=== PATIENT | male | born 1970 | race Caucasian/White ===

== ENCOUNTER → 2018-08-10 | Outpatient (CLI) | payer BC ==
--- NOTE | 2018-08-10 14:56 | RADIOLOGY REPORT (SQ) ---
EXAM DESCRIPTION: MRI ABDOMEN COMBO COMPLETED DATE/TIME: 08/10/2018 9:55 am REASON FOR STUDY: LIVER DISEASE K76.9 LIVER DISEASE, UNSPECIFIED COMPARISON: CT abdomen pelvis 06/08/2016 Unable to access imaging 01/09/2017 for comparison from [facility] diagnostic imaging TECHNIQUE: Multiplanar multisequence imaging performed without and with contrast including sagittal, axial and coronal T2, axial T1, axial gradient fat sat T1, axial, sagittal and coronal fat sat T1 po st contrast. CONTRAST TYPE AND DOSE: 20 mL Dotarem. RENAL FUNCTION: GFR > 60. LIMITATIONS: None. FINDINGS: LIVER: Normal size. No dilated ducts. CBD normal. There are subcentimeter hemangiomas pr esent in the right and left lobe liver, with increased T2 weighted signal, isointense/hypointense T1 weighted precontrast and signal, with signal dropout on out of phase images. Characteristic benign p eripheral nodular rim enhancement of these hemangiomas on the post contrasted images. These are unch anged from CT exam 06/08/2016, and are identified in the posterior right lobe liver segment 7, left l obe liver segment 3, and left lobe liver segment 4. SPLEEN: Normal size. No focal lesions. PANCREAS: No masses. No adjacent inflammation or peripancreatic fluid collections. Pancreatic duct no t dilated. GALLBLADDER: No masses. No stones. No gallbladder wall thickening or pericholecystic fluid. ADRENAL GLANDS: No significant masses or asymmetry. RIGHT KIDNEY AND URETER: No masses. No hydronephrosis. LEFT KIDNEY AND URETER: No masses. No hydronephrosis. AORTA AND VESSELS: No aneurysm. No dissection. Renal arteries, SMA, celiac without stenosis. RETROPERITONEUM: No retroperitoneal adenopathy, hemorrhage or masses. BOWEL: Not well seen ABDOMINAL WALL AND PERITONEUM: No hernias. No free fluid. BONES: No acute or significant findings. OTHER: No other significant finding. IMPRESSION: Benign liver hemangiomas TECHNICAL DOCUMENTATION: JOB ID: [id number] [employer]- All Rights Reserved Reading location - IP/workstation name: [email or web address]
== END ==
LOC: RAD 08:49
PROVIDERS: ATTEND Nurse Practitioner Family
DX: K76.9 Liver disease, unspecified (principal)
CPT/HCPCS: 74183; A9576

== ENCOUNTER 2019-04-20 11:11 | Emergency (ER) | payer BC ==
--- NOTE | 2019-04-20 12:06 | ER Document Report ---
ED General - General Chief Complaint: High Blood Pressure Stated Complaint: BLOOD PRESSURE PROBLEM Primary Care Provider: GERMAN GALLEGOS FNP-C [NO LOCAL MD] - Follow up as needed TRAVEL OUTSIDE OF THE U.S. IN LAST 30 DAYS: No - HPI Notes: 48-year-old male on Eliquis for A. fib, history of heart failure, presents with headache and transient sleepiness and confusion. Patient states he woke this morning around 3 AM which is his normal time. Blood pressure was elevated 180/100. Take his medicines as usual, going to work which states he came home early as he just did not feel well, felt fatigued and tired and "slow". No lateralized findings, he developed a gradual onset bifrontal throbbing headache over the last several hours. No trauma. Moderate intensity, nonradiating. No worse with activity. No other modifying factors, no other associated symptoms, no other provocative or palliative factors. - Related Data Allergies/Adverse Reactions: No Known Allergies Allergy (Verified 04/20/19 11:58) Past Medical History - Social History Smoking Status: Unknown if Ever Smoked Family History: None, Reviewed & Not Pertinent - Past Medical History Cardiac Medical History: Reports: Hx Atrial Fibrillation, Hx Congestive Heart Failure Past Surgical History: Reports: Hx Appendectomy, Hx Bowel Surgery, Hx Tonsillectomy Review of Systems - Review of Systems Notes: Review of systems as in the history of present illness, otherwise negative x 10 systems. Physical Exam - Vital signs Vitals: Temp 98.0 F 04/20/19 11:12 - Notes Notes: General: Well developed, well nourished. HEENT: Normocephalic, atraumatic. PEERL. No conjunctival injection. Neck: Supple, no significant adenopathy. No meningismus. Chest: Clear bilaterally, good air entry. Abdomen: Soft, non-tender, nondistended. Back: Non-tender. Normal ROM Extremities: No cyanosis, clubbing or edema. Vascular: Symmetric peripheral pulses, normal capillary refill. Skin: No significant rash. No petechiae or purpura. Motor: Normal tone and power. Symmetric. Neurologic: Alert and oriented to person place and time. Cranial nerves II-12 are intact. Sensation intact and symmetric in the upper and lower extremities. No cerebellar findings including finger-nose testing. No clonus. Gait normal. Funduscopic exam shows crisp disc margins, no evidence of papilledema. Course - Re-evaluation Re-evalutation: 04/20/19 12:04 48-year-old male presents the aforementioned symptoms. Given his underlying anticoagulation combined with headache, concern over the potential for spontaneous bleed. Less likely ischemic CVA given the absence of any lateralized findings. May be related to other endocrine, metabolic or other etiology. We will proceed with CT imaging, laboratory valuation, serial exams and reassess. 04/20/19 14:06 Labs reviewed, CBC unremarkable, chemistries unremarkable. Chest x-ray CT imaging the brain shows no acute ab normality. Patient received diphenhydramine and Reglan with marked improvement in headache. Serial neurologic exam show no evolving abnormality. Patient was offered observation admission but is declined. He will be discharged home with follow-up close with his primary care doctor, return if worsening. 04/20/19 14:08 Note although patient is noted to have a history of A. fib, he is noted to be in sinus rhythm when I evaluate him. - Vital Signs Vital signs: Temp Pulse Resp BP Pulse Ox 98.0 F 19 141/86 H 99 04/20/19 11:26 04/20/19 14:00 04/20/19 12:01 04/20/19 14:00 - Laboratory Result Diagrams: 04/20/19 12:12 04/20/19 12:12 Laboratory results interpreted by me: 04/20/19 12:12 WBC 13.5 H Absolute Neuts (auto) 8.4 H Discharge - Discharge Clinical Impression: Headache Qualifiers: Headache type: other headache syndrome Qualified Code(s): G44.89 - Other headache syndrome Fatigue Qualifiers: Fatigue type: other Qualified Code(s): R53.83 - Other fatigue Condition: Stable Disposition: HOME, SELF-CARE Instructions: High Blood Pressure ([facility]), Headache ([facility]), Fatigue ([facility]) Additional Instructions: Follow-up with your primary care doctor tomorrow Referrals: GERMAN GALLEGOS FNP-C [NO LOCAL MD] - Follow up as needed
[2019-04-20 12:29] LABS: ABSOLUTE BASOPHILS # (AUTO) 0.1 10^3/uL (0.0-0.2); ABSOLUTE EOSINOPHILS # (AUTO) 0.3 10^3/uL (0.0-0.6); ABSOLUTE MONOCYTES (AUTO) 0.8 10^3/uL (0.1-1.4); ABSOLUTE NEUT (AUTO) 8.4 10^3/uL (1.7-8.2); BASOPHILS % (AUTO) 0.8 % (0-2); EOSINOPHILS % (AUTO) 2.1 % (0-6); HEMATOCRIT 44.2 % (37.9-51.0); HEMOGLOBIN 15.4 g/dL (13.5-17.0); LYMPHOCYTES % (AUTO) 29.4 % (13-45); MEAN CORPUSCULAR HEMOGLOBIN 31.2 pg (27.0-33.4); MEAN CORPUSCULAR HGB CONC 34.9 g/dL (32.0-36.0); MEAN CORPUSCULAR VOLUME 89 fl (80-97); MONOCYTES % (AUTO) 5.6 % (3-13); PLATELET COUNT 312 10^3/uL (150-450); RED BLOOD COUNT 4.94 10^6/uL (4.35-5.55); RED CELL DISTRIBUTION WIDTH 13.9 % (11.5-14.0); SEGMENTED NEUTROPHILS % (AUTO) 62.1 % (42-78); TOTAL CELLS COUNTED % (AUTO) 100 %; WHITE BLOOD COUNT 13.5 10^3/uL (4.0-10.5)
[2019-04-20] MEDS ORDERED: METOCLOPRAMIDE HCL INJ/PF 10 MG/2 ML SDV IV ONE (12:34)
[2019-04-20] MEDS ORDERED: DIPHENHYDRAMINE HCL 50 MG/ML VIAL IV ONE (12:34)
--- NOTE | 2019-04-20 12:47 | RADIOLOGY REPORT (SQ) ---
EXAM DESCRIPTION: CT HEAD WITHOUT COMPLETED DATE/TIME: 04/20/2019 12:33 pm REASON FOR STUDY: sadia DARNELL COMPARISON: CT brain 07/26/2008 TECHNIQUE: Axial images acquired through the brain without intravenous contrast. Images reviewed wi th bone, brain and subdural windows. Additional sagittal and coronal reconstructions were generated. Images stored on PACS. All CT scanners at this facility use dose modulation, iterative reconstruction, and/or weight based d osing when appropriate to reduce radiation dose to as low as reasonably achievable (ALARA). [facility]: Dose Right [facility]: CareDose [facility]: Dose Right [facility]: Teradose 4D [facility]: [employer] RADIATION DOSE: CT Rad equipment meets quality standard of care and radiation dose reduction techniq ues were employed. CTDIvol: 53.2 mGy. DLP: 1017 mGy-cm. mGy. LIMITATIONS: None. FINDINGS: VENTRICLES: Normal size and contour. CEREBRUM: No masses. No hemorrhage. No midline shift. No evidence for acute infarction. Normal gra y/white matter differentiation. No areas of low density in the white matter. CEREBELLUM: No masses. No hemorrhage. No alteration of density. No evidence for acute infarction. EXTRAAXIAL SPACES: No fluid collections. No masses. ORBITS AND GLOBE: No intra- or extraconal masses. Normal contour of globe without masses. CALVARIUM: No fracture. PARANASAL SINUSES: Mild mucous membrane thickening and fluid in the ethmoid air cells SOFT TISSUES: No mass or hematoma. OTHER: No other significant finding. IMPRESSION: No acute intracranial changes. Minimal ethmoid sinus inflammatory findings EVIDENCE OF ACUTE STROKE: NO. COMMENT: Quality ID # [id number]: Final reports with documentation of one or more dose reduction techniques (e.g., Automated exposure control, adjustment of the mA and/or kV according to patient size, use of iterative reconstruction technique) TECHNICAL DOCUMENTATION: JOB ID: [id number] [employer]- All Rights Reserved Reading location - IP/workstation name: [email or web address]
[2019-04-20 12:51] LABS: ALBUMIN 4.2 g/dL (3.5-5.0); ALKALINE PHOSPHATASE 53 U/L (38-126); ANION GAP 8 (5-19); ASPARTATE AMINO TRANSFERASE 21 U/L (17-59); BILIRUBIN,DIRECT 0.1 mg/dL (0.0-0.4); BILIRUBIN,TOTAL 0.6 mg/dL (0.2-1.3); BLOOD UREA NITROGEN 16 mg/dL (7-20); CALCIUM 9.5 mg/dL (8.4-10.2); CARBON DIOXIDE 27 mmol/L (22-30); CHLORIDE 104 mmol/L (98-107); GLUCOSE 87 mg/dL (75-110); POTASSIUM 4.1 mmol/L (3.6-5.0)
[2019-04-20 14:11] VITALS: BP 125/84
== END 2019-04-20 14:19 | disposition home or self-care (01) ==
LOC: ER 11:11
DX: G44.89 Other headache syndrome (principal); R53.83 Other fatigue; R41.0 Disorientation, unspecified; I48.91 Unspecified atrial fibrillation; Z79.02 Long term (current) use of antithrombotics/antiplatelets
CPT/HCPCS: 36415; 85025; 80053; 70450; J1200; J2765; 96374; 96375; 99284

== ENCOUNTER 2020-08-04 14:56 | Emergency (ER) | payer SELFPAY ==
[2020-08-04 15:58] VITALS: BP 151/89
--- NOTE | 2020-08-04 16:24 | ER Document Report ---
ED Medical Screen (RME) - General Chief Complaint: Blood Pressure Problem Stated Complaint: POSSIBLE HIGH BLOOD PRESSURE Time Seen by Provider: 08/04/20 16:08 TRAVEL OUTSIDE OF THE U.S. IN LAST 30 DAYS: No - HPI Notes: 08/04/20 16:20 50-year-old male with a history of atrial fibrillation, CHF hypertension presents to the emergency room today for evaluation of shortness of breath, uncontrolled hypertension with medications with readings 180/123, palpitations and patient is not on anticoagulants due to lack of insurance. Patient states he did have an atrial ablation done 2 years ago for his atrial fibrillation. He states over the last couple of weeks a "chip" in his heart keeps "going off" but he has been feeling the shortness of breath for the last 2 days that has become progressively worse. He states he has been off the Eliquis for a year or so. He does follow with Dr. Hansen, information systems architect at [facility]. Patient states he tried to get an echocardiogram of his heart due to only having EF of 50% but due to lack of insurance he is unable to get this done. Patient does take amiodarone, metoprolol, lisinopril, Lasix daily. Denies any pedal edema. Patient concerned that his CHF has become worse as well as his uncontrolled A. fib I have greeted and performed a rapid initial assessment of this patient. A comprehensive ED assessment and evaluation of the patient, analysis of test results and completion of the medical decision making process will be conducted by additional ED providers. PHYSICAL EXAMINATION: GENERAL: Well-appearing, well-nourished and in no acute distress. CV: Regularly irregular, tachycardia LUNGS: No respiratory distress The patient was evaluated during a global COVID-19 pandemic and that diagnosis was suspected/considered upon their initial presentation. Their evaluation, treatment and testing was consistent with current guidelines for patients who present with complaints or symptoms and may be related to COVID-19. - Related Data Allergies/Adverse Reactions: No Known Allergies Allergy (Verified 04/20/19 11:58) Past Medical History - Past Medical History Cardiac Medical History: Reports: Hx Atrial Fibrillation, Hx Congestive Heart Failure, Hx Hypertension Past Surgical History: Reports: Hx Appendectomy, Hx Bowel Surgery, Hx Tonsillectomy Physical Exam - Vital signs Vitals: Temp Pulse Resp BP Pulse Ox 98.1 F 126 H 20 151/89 H 97 08/04/20 15:53 08/04/20 15:53 08/04/20 15:53 08/04/20 15:53 08/04/20 15:53 Course - Vital Signs Vital signs: Temp Pulse Resp BP Pulse Ox 98.1 F 126 H 20 151/89 H 97 08/04/20 15:53 08/04/20 15:53 08/04/20 15:53 08/04/20 15:53 08/04/20 15:53
[2020-08-04 16:53] LABS: ABSOLUTE BASOPHILS # (AUTO) 0.2 10^3/uL (0.0-0.2); ABSOLUTE EOSINOPHILS # (AUTO) 0.3 10^3/uL (0.0-0.6); ABSOLUTE LYMPHOCYTES (AUTO) 2.9 10^3/uL (0.5-4.7); ABSOLUTE NEUT (AUTO) 8.6 10^3/uL (1.7-8.2); BASOPHILS % (AUTO) 1.3 % (0-2); EOSINOPHILS % (AUTO) 2.6 % (0-6); HEMATOCRIT 43.8 % (37.9-51.0); HEMOGLOBIN 15.7 g/dL (13.5-17.0); LYMPHOCYTES % (AUTO) 22.7 % (13-45); MEAN CORPUSCULAR HEMOGLOBIN 31.1 pg (27.0-33.4); MEAN CORPUSCULAR VOLUME 87 fl (80-97); MONOCYTES % (AUTO) 7.3 % (3-13); PLATELET COUNT 307 10^3/uL (150-450); RED BLOOD COUNT 5.05 10^6/uL (4.35-5.55); RED CELL DISTRIBUTION WIDTH 13.4 % (11.5-14.0); SEGMENTED NEUTROPHILS % (AUTO) 66.1 % (42-78); TOTAL CELLS COUNTED % (AUTO) 100 %; WHITE BLOOD COUNT 12.9 10^3/uL (4.0-10.5)
[2020-08-04 17:14] LABS: ALBUMIN 4.4 g/dL (3.5-5.0); ALKALINE PHOSPHATASE 59 U/L (38-126); ANION GAP 7 (5-19); ASPARTATE AMINO TRANSFERASE 21 U/L (17-59); BILIRUBIN,DIRECT 0.3 mg/dL (0.0-0.4); BILIRUBIN,TOTAL 0.6 mg/dL (0.2-1.3); BLOOD UREA NITROGEN 19 mg/dL (7-20); CARBON DIOXIDE 33 mmol/L (22-30); CHLORIDE 101 mmol/L (98-107); GLUCOSE 94 mg/dL (75-110); POTASSIUM 4.4 mmol/L (3.6-5.0); TOTAL PROTEIN 7.3 g/dL (6.3-8.2)
[2020-08-04 17:27] LABS: NT PRO BNP 41 pg/mL (<125)
[2020-08-04 17:29] LABS: TROPONIN I < 0.012 ng/mL
--- NOTE | 2020-08-04 19:01 | RADIOLOGY REPORT (SQ) ---
EXAM DESCRIPTION: CT HEAD WITHOUT IMAGES COMPLETED DATE/TIME: 08/04/2020 2:52 pm REASON FOR STUDY: confusion COMPARISON: 04/20/2019 TECHNIQUE: Axial images acquired through the brain without intravenous contrast. Images reviewed wi th bone, brain and subdural windows. Additional sagittal and coronal reconstructions were generated. Images stored on PACS. All CT scanners at this facility use dose modulation, iterative reconstruction, and/or weight based d osing when appropriate to reduce radiation dose to as low as reasonably achievable (ALARA). [facility]: Dose Right [facility]: CareDose [facility]: Dose Right [facility]: Teradose 4D [facility]: [employer] RADIATION DOSE: CT Rad equipment meets quality standard of care and radiation dose reduction techniq ues were employed. CTDIvol: 53.2 mGy. DLP: 991 mGy-cm. mGy. LIMITATIONS: None. FINDINGS: VENTRICLES: Normal size and contour. CEREBRUM: No masses. No hemorrhage. No midline shift. No evidence for acute infarction. Normal gra y/white matter differentiation. No areas of low density in the white matter. CEREBELLUM: No masses. No hemorrhage. No alteration of density. No evidence for acute infarction. EXTRAAXIAL SPACES: No fluid collections. No masses. ORBITS AND GLOBE: No intra- or extraconal masses. Normal contour of globe without masses. CALVARIUM: No fracture. PARANASAL SINUSES: Some mild patchy mucosal thickening in the ethmoid air cells bilaterally. SOFT TISSUES: No mass or hematoma. OTHER: No other significant finding. IMPRESSION: No acute intracranial abnormality on noncontrast CT. EVIDENCE OF ACUTE STROKE: NO. COMMENT: Quality ID # [id number]: Final reports with documentation of one or more dose reduction techniques (e.g., Automated exposure control, adjustment of the mA and/or kV according to patient size, use of iterative reconstruction technique) TECHNICAL DOCUMENTATION: JOB ID: [id number] [employer]- All Rights Reserved Reading location - IP/workstation name: [email or web address]
--- NOTE | 2020-08-04 19:37 | EKG REPORT ---
SEVERITY:- OTHERWISE NORMAL ECG - SINUS RHYTHM ATRIAL PREMATURE COMPLEX : Confirmed by: Chloe Calloway MD 04-Aug-2020 19:36:42
--- NOTE | 2020-08-04 20:22 | RADIOLOGY REPORT (SQ) ---
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 Technical factors: This exam was performed according to our departmental dose-optimization program, which includes automated exposure control, adjustment of the mA and/or kV according to patient size and/or use of iterative reconstruction technique. Images were obtained after the administration of 75 mL of Omnipaque 350 intravenous contrast. MIPS were created. FINDINGS: Central airways are patent. Lung windows show a 4 mm solid nodule located within the right upper lobe near the minor fissure on image 54 of series 102. An additional 5 mm solid subpleural nodule is noted within the right middle lobe on image 66 of series 102. 3 mm solid subpleural nodule located within the left lower lobe on image 79 of series 102. Lungs are otherwise clear. Mediastinal windows show no significant hilar or mediastinal lymph node enlargement. Only a few small/nonenlarged mediastinal/bilateral hilar lymph nodes are evident. Heart shows no suspicious finding. Thoracic aorta appears normal in caliber. The study is somewhat limited for the evaluation of pulmonary emboli secondary to motion artifact about both lung bases. No definite focal filling defects are identified to the proximal segmental level. Limited evaluation of the upper abdomen reveals that the liver is likely mildly steatotic with areas of fatty sparing adjacent to the gallbladder fossa. No additional suspicious findings are evident within the imaged upper abdomen. Bone windows show no destructive osseous lesions. IMPRESSION: No evidence of pulmonary embolism or other acute abnormality within the chest. Suspect hepatic steatosis. Few scattered sub-6 mm solid nodules. Current recommendations suggest optional follow-up CT chest in 12 months to document continued stability if individual is at high-risk for malignancy. No additional follow-up is required in a low-risk individual.
== END 2020-08-04 20:38 | disposition left against medical advice (07) ==
LOC: ER 14:56
DX: I48.91 Unspecified atrial fibrillation (principal); I50.9 Heart failure, unspecified; I11.0 Hypertensive heart disease with heart failure; R06.02 Shortness of breath; Z79.01 Long term (current) use of anticoagulants; R00.0 Tachycardia, unspecified; R41.0 Disorientation, unspecified; Z20.828 Contact with and (suspected) exposure to other viral communicable diseases; Z79.899 Other long term (current) drug therapy; Z53.20 Procedure and treatment not carried out because of patient's decision for unspecified reasons
CPT/HCPCS: 36415; 70450; 71275; 80053; 83880; 84484; 85025; 93005; 93010; 99281

== ENCOUNTER 2020-08-05 08:17 | Emergency (ER) | payer SELFPAY ==
[2020-08-05 09:22] LABS: ABSOLUTE BASOPHILS # (AUTO) 0.1 10^3/uL (0.0-0.2); ABSOLUTE EOSINOPHILS # (AUTO) 0.3 10^3/uL (0.0-0.6); ABSOLUTE LYMPHOCYTES (AUTO) 2.9 10^3/uL (0.5-4.7); ABSOLUTE MONOCYTES (AUTO) 0.8 10^3/uL (0.1-1.4); ABSOLUTE NEUT (AUTO) 6.2 10^3/uL (1.7-8.2); BASOPHILS % (AUTO) 1.2 % (0-2); HEMATOCRIT 47.4 % (37.9-51.0); HEMOGLOBIN 16.7 g/dL (13.5-17.0); LYMPHOCYTES % (AUTO) 28.2 % (13-45); MEAN CORPUSCULAR HEMOGLOBIN 31.2 pg (27.0-33.4); MEAN CORPUSCULAR HGB CONC 35.3 g/dL (32.0-36.0); MEAN CORPUSCULAR VOLUME 88 fl (80-97); MONOCYTES % (AUTO) 8.1 % (3-13); PLATELET COUNT 329 10^3/uL (150-450); RED BLOOD COUNT 5.37 10^6/uL (4.35-5.55); RED CELL DISTRIBUTION WIDTH 13.7 % (11.5-14.0); SEGMENTED NEUTROPHILS % (AUTO) 59.5 % (42-78); TOTAL CELLS COUNTED % (AUTO) 100 %; WHITE BLOOD COUNT 10.4 10^3/uL (4.0-10.5)
--- NOTE | 2020-08-05 09:24 | ER Document Report ---
ED General - General Chief Complaint: Palpitations Stated Complaint: ABNORMAL LABS Time Seen by Provider: 08/05/20 09:18 Primary Care Provider: GERMAN GALLEGOS FNP-C [Primary Care Provider] - Follow up as needed ROMANA HANSEN MD [NO LOCAL MD] - 08/23/20 (follow up sooner if needed) TRAVEL OUTSIDE OF THE [place].S. IN LAST 30 DAYS: No - HPI Notes: 50-year-old male with a history of atrial fibrillation, CHF hypertension returns back to the emergency room today after he was triaged last night for shortness of breath, palpitations, uncontrolled hypertension, dizziness, LH. In triage troponins were ordered, the initial one <0.012 but a secondary troponin that was ordered 3 hours later,was abnormal at 0.026. Patient did elope prior to me seeing in the main side emergency room by a emergency room provider. he was called today and advised to return back to the emergency room. patient is not on anticoagulants due to lack of insurance. Patient states he did have an atrial ablation done 2 years ago for his atrial fibrillation. He states over the last couple of weeks a "chip" in his heart keeps "going off" but he has been feeling the shortness of breath for the last 2 days that has become progressively worse. He states he has been off the Eliquis for a year or so. He does follow with Dr. Hansen, pipe stem sawyer at [facility]. Patient states he tried to get an echocardiogram of his heart due to only having EF of 50% but due to lack of insurance he is unable to get this done. Patient does take amiodarone, metoprolol, lisinopril, Lasix daily. Denies any pedal edema. Patient concerned that his CHF has become worse as well as his uncontrolled A. fib. - Related Data Allergies/Adverse Reactions: No Known Allergies Allergy (Verified 08/05/20 08:25) Past Medical History - General Information source: Patient - Social History Smoking Status: Current Every Day Smoker Family History: None, Reviewed & Not Pertinent - Past Medical History Cardiac Medical History: Reports: Hx Atrial Fibrillation, Hx Congestive Heart Failure, Hx Hypertension Past Surgical History: Reports: Hx Appendectomy, Hx Bowel Surgery, Hx Tonsillectomy Review of Systems - Review of Systems Constitutional: No symptoms reported EENT: No symptoms reported Cardiovascular: See HPI Respiratory: See HPI Gastrointestinal: No symptoms reported Genitourinary: No symptoms reported Male Genitourinary: No symptoms reported Musculoskeletal: No symptoms reported Skin: No symptoms reported Hematologic/Lymphatic: No symptoms reported Neurological/Psychological: No symptoms reported Physical Exam - Vital signs Vitals: Temp Pulse Resp BP Pulse Ox 98.1 F 79 16 140/73 H 99 08/05/20 08:21 08/05/20 08:21 08/05/20 08:21 08/05/20 08:21 08/05/20 08:21 Course - Re-evaluation Re-evalutation: 08/05/20 13:01 Afebrile, vital stable no distress. Nurses notes reviewed. CBC negative for leukocytosis or anemia, CMP negative for hepatic or renal dysfunction, no electrolyte disturbances. Troponins x2 3 hours apart were less than 0.012. EKG negative for ST segment elevations, no STEMI. TSH was normal. Patient normal sinus rhythm. Urinalysis unremarkable. Blood pressure has remained steady. Vitals stable. Patient is having no active chest pain. Patient was seen in the emergency room last night in triage by same provider, a CTA was done which was negative for PE, patient did have an elevated troponin of 0.028 he then eloped, he was not seen by a ER provider. Patient was advised to return back to the emergency room today for reevaluation of his labs. Patient does have an [facility] appointment with cardiology on this [address] Hansen, [facility]. Patient states he mostly came to the emergency room yesterday because he did need a work note. Patient's BNP yesterday was normal. Chest x- ray unremarkable. His coags were normal today. consulted with Dr. Shorty Escalona at 1200 regarding pertinent laboratory diagnostic clinical findings. He did go to see patient at bedside. Please see his note for consult. after reviewing all of his information, we did start him on a dose of Xarelto 20 mg today as well as case management has been involved and they did give him coupons to get Xarelto for him to buy at the pharmacy. Patient was agreeable this plan of care of starting Xarelto 20mg daily as prophylactics to his intermittent A. fib. Patient has not been in A. fib today at all in the emergency room nor is he in A. fib while on the monitor/ekg yesterday in the emergency room on EKG. Denies any shortness of breath, nausea, vomiting, diarrhea, fevers or chills. Patient does not warrant for admission today, advised to return to the emergency room if he experiences any chest pain, shortness of breath, palpitations. After performing a Medical Screening Examination, I estimate there is LOW risk for RUPTURED ESOPHAGUS, PNEUMOTHORAX, PULMONARY EMBOLISM, ACUTE CORONARY SYNDROME, OR THORACIC AORTIC DISSECTION, thus I consider the discharge disposition reasonable. I have reevaluated this patient multiple times and no significant life threatening changes are noted. The patient and I have discussed the diagnosis and risks, and we agree with discharging home with close follow-up. We also discussed returning to the Emergency Department immediately if new or worsening symptoms occur. We have discussed the symptoms which are most concerning (e.g., bloody sputum, worsening pain or shortness of breath) that necessitate immediate return. - Vital Signs Vital signs: Temp Pulse Resp BP Pulse Ox 98.1 F 79 24 H 133/82 H 97 08/05/20 08:21 08/05/20 08:21 08/05/20 13:01 08/05/20 13:01 08/05/20 13:01 - Laboratory Results Result Diagrams: 08/05/20 08:54 08/05/20 08:54 Laboratory Results Interpreted: 08/05/20 08:54 Carbon Dioxide 33 H Critical Laboratory Results Reviewed: No Critical Results - Radiology Results Critical Radiology Results Reviewed: No Critical Results - EKG Interpretation by Me EKG shows normal: Sinus rhythm Rate: Normal Additional EKG results interpreted by me: 08/05/20 17:52 EKG heart rate 71, P axis 54, QRS axis 46, T axis 15. No ST segment elevations, no STEMI. Normal sinus rhythm with premature atrial complex. 08/05/20 17:53 Discharge - Discharge Clinical Impression: History of atrial fibrillation, SOB (shortness of breath), Need for prophylac tic antibiotic Condition: Stable Disposition: HOME, SELF-CARE Instructions: Atrial Fibrillation ([facility]), High Blood Pressure ([facility]) Additional Instructions: You were given first dose of Xarelto here in the office 20 mg. You have been prescribed Xarelto 20 mg daily, this prophylactic to prevent blood clots from atrial fibrillation is intermittent. Please follow-up with the pipe stem sawyer that you already have asked scheduled appointment with on August 23, 2020. All of your blood work today was normal. Please return to the emergency room if you experience any shortness of breath, chest pain, palpitations. Is imperative that you do take your Xarelto daily. Return immediately for any new or worsening symptoms. Follow up with primary care provider, call tomorrow to make followup appointme nt. Prescriptions: Rivaroxaban [Xarelto] 20 mg PO DAILY #30 tablet Forms: Return to Work Referrals: GERMAN GALLEGOS FNP-C [Primary Care Provider] - Follow up as needed ROMANA HANSEN MD [NO LOCAL MD] - 08/23/20 (follow up sooner if needed)
[2020-08-05 09:28] LABS: INTERNATIONAL RATION (INR) 0.93; PARTIAL THROMBOPLASTIN TIME 30.1 SEC (23.5-35.8); PROTHROMBIN TIME 12.7 SEC (11.4-15.4)
[2020-08-05 09:44] LABS: ALBUMIN 4.5 g/dL (3.5-5.0); ALKALINE PHOSPHATASE 55 U/L (38-126); ANION GAP 7 (5-19); ASPARTATE AMINO TRANSFERASE 18 U/L (17-59); BILIRUBIN,DIRECT 0.3 mg/dL (0.0-0.4); BILIRUBIN,TOTAL 0.6 mg/dL (0.2-1.3); BLOOD UREA NITROGEN 18 mg/dL (7-20); CALCIUM 9.9 mg/dL (8.4-10.2); CARBON DIOXIDE 33 mmol/L (22-30); CHLORIDE 102 mmol/L (98-107); GLUCOSE 103 mg/dL (75-110); POTASSIUM 4.1 mmol/L (3.6-5.0); TOTAL PROTEIN 7.4 g/dL (6.3-8.2)
--- NOTE | 2020-08-05 11:40 | EKG REPORT ---
SEVERITY:- BORDERLINE ECG - SINUS RHYTHM ATRIAL PREMATURE COMPLEX BORDERLINE PROLONGED QT INTERVAL : Confirmed by: Chloe Calloway MD 05-Aug-2020 11:39:21
--- NOTE | 2020-08-05 12:07 | ER Document Report ---
Doctor's Note Notes: 08/05/20 12:03 This is a 50-year-old male I was asked to see with the nurse practitioner who presented yesterday and again today for intermittent palpitations. I have reviewed medical record from yesterday's visit and today's visit in detail. I have obtained supplemental history from the patient and examined him personally at the bedside. Briefly this is a 50-year-old man who has a history of paroxysmal atrial fibrillation who has been on multiple cardiac medications and is also supposed to be on anticoagulation. He recently stopped his anticoagulation because of financial issues and says that his health insurance was temporarily discontinued but will be restarting within the next 2 weeks and he anticipates he will be able to go back on his medication then. He has a chip recorder in situ and has been in communication with the monitoring center. They have advised him that he has had some episodes of nonsustained paroxysmal atrial fibrillation. Currently is not having any chest pain, nausea, vomiting or significant dyspnea. Patient has a few PACs on monitor. His vital signs are stable. His EKG showed no significant new findings today. His troponin last night was trivially elevated. Is been repeated today and is normal at this time. His CBC and chemistry profile were unremarkable. I think this man needs to stay on his usual medications and follow-up with cardiology within the next 2 weeks as he is already arranged. We 1 days discharge planning see him to try to get him back on his Eliquis. I have reemphasized him that he can return emergency department if he has any new or worsening symptoms such as: Severe shortness of breath Pain that is worsening or unimproved Uncontrolled vomiting High fever or shaking chills Overall worsening Findings, clinical impression and plan of treatment have been discussed with patient/family. Understanding of current findings and recommendations has been acknowledged by them and there is agreement regarding disposition and follow-up.
[2020-08-05] MEDS ORDERED: RIVAROXABAN 10 MG TABLET PO ONE (12:12)
[2020-08-05 13:27] VITALS: BP 133/82
== END 2020-08-05 13:35 | disposition home or self-care (01) ==
LOC: ER 08:17
DX: R00.2 Palpitations (principal); R42 Dizziness and giddiness; R06.02 Shortness of breath; F17.200 Nicotine dependence, unspecified, uncomplicated; I48.91 Unspecified atrial fibrillation; I11.0 Hypertensive heart disease with heart failure; I50.9 Heart failure, unspecified; Z91.14 Patient's other noncompliance with medication regimen; Z59.9 Problem related to housing and economic circumstances, unspecified
CPT/HCPCS: 36415; 80053; 84443; 84484; 85025; 85610; 85730; 93005; 93010; 99284